=== PATIENT | male | born 1975 | race Caucasian/White ===

== ENCOUNTER 2016-09-18 13:21 | Emergency (ER) | payer OTHER, SELFPAY ==
[2016-09-18] MEDS ORDERED: HYDROmorphone 1 MG/ML Syringe IM ONE (13:42)
--- NOTE | 2016-09-18 13:46 | EDM.PDOC ---
<Isidro Kearney - Last Filed: 09/18/16 14:30> ED HPI Trauma - General Chief Complaint: Lower Extremity Injury/Pain Stated Complaint: R ANKLE INJURY Time Seen by Provider: 09/18/16 13:31 Source: Reports: Patient History Limitations: Reports: No limitations - History of Present Illness INITIAL COMMENTS - FREE TEXT/NARRATIVE: The patient was working on his truck and a tool broke and he went forward and he felt something snap in his right ankle. He could not walk on it and he says it dangles. He has no other injuries. Occurred When: just prior to arrival Occurred Where: home Method of Injury: fall Severity: severe Pain/Injury Location: Reports: lower extremity, right (Ankle) Consciousness: Reports: no loss of consciousness Associated Symptoms: Reports: no other symptoms Allergies/ADRs: Allergies No Known Allergies Allergy (Verified 09/18/16 13:32) Home Medications: Ambulatory Orders Polyethylene Glycol 3350 [MiraLAX] 17 gm PO DAILY #1 canister 09/18/16 oxyCODONE HCl/Acetaminophen [Percocet 5-325 mg Tablet] 1 - 2 each PO Q4H PRN # 20 tablet 09/18/16 Review of Systems - Review of Systems Review Of Systems: See Below Constitutional: Reports: no symptoms Eyes: Reports: no symptoms Ears: Reports: no symptoms Nose: Reports: no symptoms Mouth/Throat: Reports: no symptoms Respiratory: Reports: No Symptoms Cardiovascular: Reports: no symptoms GI/Abdominal: Reports: No symptoms Genitourinary: Reports: no symptoms Musculoskeletal: Reports: other (Right ankle pain) Trauma Exam - Physical Exam Exam: See Below Exam Limited By: No limitations General Appearance: Reports: alert, no apparent distress Head: Reports: atraumatic, normocephalic Ears: Reports: normal external exam Nose: Reports: normal inspection Respiratory Exam: Reports: no respiratory distress Extremities: Reports: other (Pain upon palpation to the right ankle with moderate edema. Good sensation and pulses distally. He can bobby his toes.) Course - Vital Signs Last Recorded V/S: Last Vital Signs Temp Pulse 74 09/18/16 14:40 Resp 18 09/18/16 14:40 BP 122/74 09/18/16 14:40 Pulse Ox 97 09/18/16 14:40 - Orders/Labs/Meds Meds: Medications Discontinued Medications Generic Name Dose Route Start Last Admin Trade Name Bolivar PRN Reason Stop Dose Admin Hydromorphone HCl 1 mg 09/18/16 13:42 09/18/16 13:47 Dilaudid IM 09/18/16 13:43 1 mg ONETIME ONE Administration - Re-Assessments/Exams Free Text/Narrative Re-Assessment/Exam: 09/18/16 13:45 Initially the patient refused something for pain but now he may take some so I ordered dilaudid 1mg IM. Departure - Departure Disposition: Home, Self-Care 01 Clinical Impression: Closed bimalleolar fracture Prescriptions: Polyethylene Glycol 3350 [MiraLAX] 17 gm PO DAILY #1 canister oxyCODONE HCl/Acetaminophen [Percocet 5-325 mg Tablet] 1 - 2 each PO Q4H PRN # 20 tablet PRN Reason: pain relief. Referrals: PCP,None [Primary Care Provider] - Forms: ED Department Discharge Additional Instructions: Evaluation in the emergency room today in regards to acute injury to her right ankle. X-rays reveal the bones of the ankle are broken and surgical repair is required. We will place him A. Ortho-Glass posterior slab and stirrup splint to maintain current position of the bones. You are to travel to Dr. Noel `s office which is on second floor on the side of the hospital at this time so that he can discuss operative intervention likely tomorrow morning. In the meantime he will be nonweightbearing crutch walking. Elevate the right ankle is much as possible ideally above the level of the heart. Ice pack over the splint for one half hour out of every 4 hours. Percocet tablets 5 325 likely 2 tablets every 4 hours as needed to relieve pain. If you need them during the night he takes with a sip of water otherwise you are not to eat or drink anything after midnight. MiraLax powder 17 g once daily to prevent constipation secondary to narcotics. <Stanislaw Ramirez - Last Filed: 09/18/16 23:03> ED TRAUMA EXTREMITY PROCEDURES - Splinting Right Lower Extremity Splint site: Rt lower leg. Splint material: fiberglass Splint design: stirrup, posterior Applied & form fitted by: provider Provider post-splint application NV check: NV status normal Complications: No Course - Re-Assessments/Exams Free Text/Narrative Re-Assessment/Exam: 09/18/16 14:19 patient placed in Orthoplast splint posterior slab and stirrup. He will be nonweightbearing crutch walking. He will be transported to Dr. Hidalgo's office at the opposite end of the hospital by wheelchair for surgical consultation. Prescription written for Percocet 5 325 mg tablets one or 2 every 4-6 hours needed for pain relief. Ice pack and elevation. MiraLax powder 17 g once daily while on the narcotics to prevent constipation. Departure - Departure Time of Disposition: 14:13 Condition: fair
--- NOTE | 2016-09-18 15:08 | CR ---
Right ankle: Four views of the right ankle were obtained. Displaced bimalleolar fractures are seen with unstable ankle mortise with shifting of the tibia in a medial direction in relation to the talus. Soft tissue swelling is seen. Impression: 1. Displaced bimalleolar fracture causing unstable ankle mortise. Diagnostic code #3
[2016-09-18 15:14] VITALS: BP 122/74
== END 2016-09-18 14:40 | disposition home or self-care (01) ==
LOC: JD.ED 13:21
DX: S82.841A Displaced bimalleolar fracture of right lower leg, initial encounter for closed fracture (principal); W17.89XA Other fall from one level to another, initial encounter; Y92.009 Unspecified place in unspecified non-institutional (private) residence as the place of occurrence of the external cause
CPT/HCPCS: 29515; 73610; 96372; 99284; J1170

== ENCOUNTER 2016-09-19 07:07 | Day surgery (SDC) | payer OTHER, SELFPAY ==
--- NOTE | 2016-09-18 16:10 | HP ---
DATE OF ADMISSION: 09/19/2016 HISTORY OF PRESENT ILLNESS: This is the first Orthopedic admission to [facility] outpatient for surgical procedure of the right ankle. The patient suffered injury while he was working, bimalleolar fracture, that is displaced. Presented to the emergency room, had x-rays taken, was splint and referred to the orthopedic clinic. After evaluation in the Orthopedic Clinic, the fracture was severely displaced and unstable. He is now being scheduled for an open reduction and internal fixation of the right ankle fracture. PAST MEDICAL HISTORY: Allergies: No known drug allergies. Medical: He has been a relatively healthy 41-year-old male. PAST SURGICAL HISTORY: Negative. CURRENT MEDICATIONS: Include Percocet and MiraLAX. BLEEDING HISTORY: Negative. CLOTTING HISTORY: Negative. SOCIAL HISTORY: The patient is a nonsmoker. Alcohol is occasional, social-type alcohol. PHYSICAL EXAMINATION: GENERAL: Today, reveals a well-developed, well-nourished 41-year-old male, in moderate to severe distress with a splint on his right ankle. HEAD, EYES, EARS, NOSE, and THROAT: Normocephalic. NECK: Supple. CHEST: Clear. COR: Regular rate. ABDOMEN: Soft. GENITOURINARY: Intact. EXTREMITIES: The right ankle reveals positive pain and deformity in medial and lateral malleolus with firm pressure. Mild swelling noted at this point. RADIOGRAPHIC STUDIES: X-rays were reviewed, which shows a displaced bimalleolar fracture of the right ankle. PLAN: The patient is to undergo an open reduction and internal fixation of the right ankle, medial malleolar and lateral malleolar fractures with a Monahan laisha and screw fixation. The procedure has been outlined to him. He understands that and has consented to it. MMODAL /[id number]
[~2016-09-19 07:07] MED LIST: Iodine/Sodium Iodide 2% Tincture 30 ML Bottle ONE
--- NOTE | 2016-09-19 07:30 | PCM.PREANE ---
Preanesthetic Assessment - Physical Assessment Height: 1.73 m Weight: 90.718 kg - Allergies Allergies/Adverse Reactions: Allergies Allergy/AdvReac Type Severity Reaction Status Date / Time No Known Allergies Allergy Verified 09/18/16 13:32 PreAnesthesia Questionnaire - SUBSTANCE USE Tobacco Use Within Last Twelve Months: No Second Hand Smoke Exposure: No Recreational Drug Use History: No - HOME MEDS Home Medications: Home Meds Polyethylene Glycol 3350 [MiraLAX] 17 gm PO DAILY #1 canister 09/18/16 [Rx] oxyCODONE HCl/Acetaminophen [Percocet 5-325 mg Tablet] 1 - 2 each PO Q4H PRN # 20 tablet 09/18/16 [Rx] - CURRENT (IN HOUSE) MEDS Current Meds: Current Medications Discontinued Medications Bupivacaine HCl (Marcaine 0.5%) Confirm Administered Dose 30 ml .ROUTE .STK-MED ONE Stop: 09/19/16 07:05 Iodine (Iodine 2% Mild Tincture) Confirm Administered Dose 30 ml .ROUTE .STK- MED ONE Stop: 09/19/16 07:06 Preanesthetic Assessment - ANESTHESIA/TRANSFUSION/FAMILY HX Anesthesia/Transfusion History: No Prior Transfusion(s), Prior Anesthesia Family History of Anesthesia Reaction: No Type of Transfusion Reactions: Reports: Unknown - REVIEW OF SYSTEMS Constitutional: Reports: no symptoms 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 symptoms Respiratory: Reports: no symptoms Cardiovascular: Reports: no symptoms GI: Reports: no symptoms Other: Reports: None - PHYSICAL ASSESSMENT HR: 67 O2 Sat by Pulse Oximetry: 94 RR: 16 BP: 131/75 Temp: 36.6 C Height: 1.73 m Weight: 90.718 kg NPO Status Date: 09/18/16 NPO Status Time: 20:00 ASA Class: 2 Mental Status: Alert & Oriented x3 Airway Class: Mallampati = 2 Dentition: Reports: Broken Tooth/Teeth (lower right molar missing, front left tooth chipped off) Thyro-Mental Finger Breadths: 3 Mouth Opening Finger Breadths: 3 ROM/Head Extension: Full Respiratory Status: lungs clear to auscultation bilaterally Cardiovascular Status: regular rate & rhythm, normal S1, S2, no murmur, blood pressure WNL - ALLERGIES Allergies/Adverse Reactions: Allergies Allergy/AdvReac Type Severity Reaction Status Date / Time No Known Allergies Allergy Verified 09/18/16 13:32 - BLOOD Blood Available: No Product(s) Available: None - ANESTHESIA PLAN Preop Beta Jennifer: No Anesthesia Type Planned: General Anesthesia - ACKNOWLEDGEMENTS Pt an Appropriate Candidate for the Planned Anesthesia: Yes Alternatives and Risks of Anesthesia Discussed w Pt/Guardian: Yes Pt/Guardian Understands and Agrees with Anesthesia Plan: Yes
[2016-09-19] MEDS ORDERED: Sodium Chloride 0.9% 10 ML Syringe FLUSH PRN (07:32)
[2016-09-19] MEDS ORDERED: Lidocaine 1%/Sod Bicarbonate in NS 8.4% 1 ML Syringe IV PRN (07:32)
[2016-09-19] MEDS ORDERED: Lactated Ringers 1,000 ML IV SCH (07:45)
[2016-09-19] MEDS ORDERED: Midazolam 1 MG/ML 2 ML SDV ONE (07:49)
[2016-09-19] MEDS ORDERED: Rocuronium 50 MG/5 ML Vial ONE (07:49)
[2016-09-19] MEDS ORDERED: Propofol 200 MG/20 ML SDV ONE (07:49)
[2016-09-19] MEDS ORDERED: fentaNYL 250 MCG/5 ML SDV ONE (07:49)
[2016-09-19] MEDS ORDERED: Ondansetron 4 MG/2 ML SDV ONE (07:49)
[2016-09-19] MEDS ORDERED: Dexamethasone 4 MG/ML SDV ONE (07:50)
[2016-09-19] MEDS ORDERED: Lidocaine 1% 4 ML ONE (07:50)
[2016-09-19] MEDS ORDERED: Ketorolac 30 MG/ML SDV IVPUSH PRN (07:52)
[2016-09-19] MEDS ORDERED: HYDROmorphone 0.5 MG/0.5 ML Syringe IVPUSH PRN ×2 (07:52→10:30)
[2016-09-19] MEDS ORDERED: Ondansetron 4 MG/2 ML SDV IVPUSH PRN ×2 (07:52→10:22)
[2016-09-19] MEDS ORDERED: Acetaminophen/oxyCODONE 325-5 MG Tab PO PRN (07:52)
[2016-09-19] MEDS ORDERED: Cyclobenzaprine 10 MG Tab PO PRN (07:52)
[2016-09-19] MEDS ORDERED: Morphine 15 MG Tab.ER PO SCH (08:00)
[2016-09-19] MEDS: Bupivacaine 0.5% 30 ML SDV ONE ×2 (08:31→09:55)
[2016-09-19] MEDS ORDERED: HYDROmorphone 1 MG/ML Syringe ONE (09:12)
--- NOTE | 2016-09-19 10:21 | PCM.POSTAN ---
POST ANESTHESIA ASSESSMENT - MENTAL STATUS Mental Status: alert, oriented - VITAL SIGNS Pulse Rate: 100 SaO2: 98 Resp Rate: 12 Blood Pressure: 136/84 Temperature: 36.1 C - RESPIRATORY Respiratory Status: respiratory rate WNL, airway patent, O2 saturation stable, supplemental oxygen - CARDIOVASCULAR CV Status: pulse rate WNL, blood pressure stable - GASTROINTESTINAL GI Status: no symptoms - PAIN Pain Score: 0 - POST OP HYDRATION Hydration Status: adequate & stable
[2016-09-19] MEDS ORDERED: Meperidine PF 50 MG/ML Syringe IVPUSH PRN (10:22)
[2016-09-19] MEDS ORDERED: diphenhydrAMINE 50 MG/ML SDV IVPUSH PRN (10:22)
[2016-09-19] MEDS ORDERED: fentaNYL 100 MCG/2 ML SDV IVPUSH PRN (11:30)
--- NOTE | 2016-09-19 12:04 | CR ---
Right ankle: Multiple fluoroscopic spot views were obtained utilizing C-arm device in the operating room of the right ankle. Study obtained during reduction and fixation of bimalleolar fractures. Final film shows short intramedullary laisha affixing lateral malleolar fracture and 2 cannulated screws affixing medial malleolar fracture. Ankle mortise has been restored to anatomic. Skin parrish are present. Possible small posterior malleolar fracture is noted. Fluoroscopy time given as 38.7 seconds. Impression: 1. Reduction and fixation of previous bimalleolar fracture. 2. Questionable small fragment posteriorly suggesting posterior malleolar fracture. Diagnostic code #2
[2016-09-19 12:50] VITALS: BP 136/76
--- NOTE | 2016-09-19 15:16 | OR ---
DATE OF OPERATION: 09/19/2016 SURGEON: Tal Noel MD PREOPERATIVE DIAGNOSIS: Displaced bimalleolar fracture, right ankle. POSTOPERATIVE DIAGNOSIS: Displaced bimalleolar fracture, right ankle. ANESTHESIA: General. OPERATION PERFORMED: 1. Open reduction and internal fixation, distal lateral malleolus fibular fracture, Monahan laisha. 2. Open reduction and internal fixation, medial malleolus fracture percutaneous screws. DESCRIPTION OF PROCEDURE: The patient was taken to the operating room in supine position and was placed under a general anesthesia. The right lower extremity was then prepped and draped by standard technique. After prepping and draping, the operation then proceeded with evaluation of the fractured right ankle, which was reduced. Then, the operation proceeded with approach to the right ankle beginning on the lateral side. The lateral malleolus was palpated. A lateral incision was placed and centered on the fibula, was a slight anterior hockey stick at the distal tip of the fibula. Once that was completed, the sharp dissection was carried right down to the bone level. The fracture area was then identified and debrided. Fracture hematoma was removed. The patient had suffered a comminution of the inner portion of the fibula right at the joint line. Multiple small bone fragments were removed and once that was completed, then the fracture could be reduced quite nicely anatomically. Once reduced, it was held in place with a bone clamp. Monahan laisha was then inserted in a distal retrograde fashion. Once in place, the operation then proceeded with application of 2 cerclage sutures using #1 Vicryl to reinforce the reduction and hold the fracture with the Monahan laisha. Once those were in place, the fracture was nice and solid. Flexion and extension of the ankle produced no movement. The area was then thoroughly irrigated. The deep tissues were closed with #1 Vicryl, subcutaneous tissues with 2-0 Vicryl, and skin with skin parrish. The fluoroscopy was brought in just to verify the positioning of the pin, which was satisfactory. Then, the operation proceeded to the medial malleolus area, where an anterior curvilinear incision was placed over the medial malleolus with penetration through the skin and subcutaneous tissues. The saphenous vein was identified. This appeared to be lacerated or injured as a result of the displaced medial malleolus fracture fragment, which came anterior. The operation proceeded with approach to the ankle joint over the medial malleolus area. The fracture site was identified. The fracture hematoma was removed. The fracture site itself was debrided. Once debrided, it was opened up to inspect the inside joint area. There was mild scuffing of the superior surface of the talus, but otherwise no fragments could be identified in the joint area. The joint was thoroughly irrigated with solutions. Once it was thoroughly irrigated, I then reinspected to make sure no bone fragments remained. The fracture was then reduced and held in place with a bone clamp. Then, the operation proceeded with placement of 2 cannulated 4.0 screws. Once the positioning of the wire fixation for the percutaneous cannulated screws was verified with fluoroscopy, the screws were then inserted by standard technique. Once inserted, they were firmly fixed to the medial malleolus. There was absolutely no motion, was nice and solid. The operation then proceeded with x- ray being brought in. AP, lateral, and oblique-type x-rays were evaluated and found to have good satisfactory reduction. The medial malleolus, medial incision was then thoroughly irrigated with iodine solution. The deep tissues were closed with 2-0 Vicryl, subcutaneous tissues with 3-0 Vicryl, and skin with skin parrish. Both the lateral and medial incisional areas were infiltrated with 1% Marcaine. Standard dressings were applied. Short leg cast was applied that was bivalved. The patient tolerated this whole procedure well. He left the operating room in a stable condition to his room for recovery. ESTIMATED BLOOD LOSS: MMODAL /[id number]
--- NOTE | 2016-09-20 07:23 | PCM48HPAN ---
Post Anesthesia Note - EVALUATION WITHIN 48HRS OF ANESTHETIC Vital Signs in Normal Range: Yes Patient Participated in Evaluation: Yes Respiratory Function Stable: Yes Airway Patent: Yes Cardiovascular Function Stable: Yes Hydration Status Stable: Yes Pain Control Satisfactory: Yes Nausea and Vomiting Control Satisfactory: Yes Mental Status Recovered: Yes
== END 2016-09-19 12:35 | disposition home or self-care (01) ==
LOC: JD.SDS 07:07
PROVIDERS: ATTEND Specialist
DX: S82.841A Displaced bimalleolar fracture of right lower leg, initial encounter for closed fracture (principal); Z79.899 Other long term (current) drug therapy
CPT/HCPCS: 27814; 76000; A9270; C1713; J1100; J1170; J1885; J2250; J2405; J3010; J7120; 01480; C1769; J2704